=== PATIENT | female | born 1960 | race Caucasian/White ===

== ENCOUNTER 2021-10-30 21:40 | Emergency (ER) | payer SELFPAY ==
[~2021-10-30] VITALS: Ht 137.2 cm; Wt 66.4 kg
[2021-10-30 22:09] VITALS: BP 142/79
--- NOTE | 2021-10-30 23:19 | NUR ---
PT TAKEN TO BED 4.
--- NOTE | 2021-10-30 23:38 | NUR ---
ER AT BEDSIDE
[2021-10-30] MEDS ORDERED: ACETAMINOPHEN EXTRA STRENGTH 500 MG TAB PO ONE (23:50)
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
[2021-10-31] MEDS ORDERED: LIDOCAINE MPF 1% 5 ML ONE (00:14)
[2021-10-31] MEDS ORDERED: LIDOCAINE MPF 1% 10 MG/ML VIAL INJ ONE (00:15)
[2021-10-31] MEDS ORDERED: ACET-10509 PO (01:33)
[2021-10-31] MEDS ORDERED: BACI1PAC6 TP (01:33)
[2021-10-31 02:00] VITALS: BP 142/79
--- NOTE | 2021-10-31 02:01 | NUR ---
Patient discharged with v/s stable. Written and verbal after care instructions given and explained. Patient alert, oriented and verbalized understanding of instructions. Ambulatory with steady gait. All questions addressed prior to discharge. ID band removed. Patient advised to follow up with PMD. Rx of ACETAMINOPHEN AND BACITRACIN given. Patient educated on indication of medication including possible reaction and side effects. Opportunity to ask questions provided and answered. A/OX4, VS, AMBULATORY, UNLABORED BREATHING, AND CALM DEMEANOR.
== END 2021-10-31 02:00 | disposition home or self-care (01) ==
LOC: MED 21:40
DX: S61.211A Laceration without foreign body of left index finger without damage to nail, initial encounter (principal); Z90.49 Acquired absence of other specified parts of digestive tract; Z79.899 Other long term (current) drug therapy; Z79.2 Long term (current) use of antibiotics; W26.0XXA Contact with knife, initial encounter; Y93.89 Activity, other specified; Y92.000 Kitchen of unspecified non-institutional (private) residence as the place of occurrence of the external cause; Y99.8 Other external cause status
CPT/HCPCS: 12002; 90471; 90715; 99283; J2001

== ENCOUNTER 2021-11-08 08:06 | Emergency (ER) | payer SELFPAY ==
[~2021-11-08] VITALS: Ht 153.7 cm; Wt 65.9 kg
[~2021-11-08 08:06] MED LIST: ACET-10509 PO; BACI1PAC6 TP
[2021-11-08 08:11] VITALS: BP 115/64
[2021-11-08 09:23] VITALS: BP 115/64
== END 2021-11-08 09:24 | disposition home or self-care (01) ==
LOC: MED 08:06
DX: S61.211D Laceration without foreign body of left index finger without damage to nail, subsequent encounter (principal); Z79.899 Other long term (current) drug therapy; Z79.2 Long term (current) use of antibiotics; X58.XXXD Exposure to other specified factors, subsequent encounter
CPT/HCPCS: 99283

== ENCOUNTER 2021-11-13 12:48 | Emergency (ER) | payer SELFPAY ==
[~2021-11-13] VITALS: Ht 154.9 cm; Wt 66.2 kg
[2021-11-13 13:10] VITALS: BP 129/79
--- NOTE | 2021-11-13 13:49 | NUR ---
PT SEEN AND TREATED BY GLO AMBROCIO, NO NURSING INTERVENTIONS PROVIDED
--- NOTE | 2021-11-13 13:50 | NUR ---
Patient discharged with v/s stable. Written and verbal after care instructions ABOUT SUTURE REMOVAL, CARE AFTER given and explained. Patient verbalized understanding. Ambulatory with steady gait. All questions addressed prior to discharge. Advised to follow up with PMD.
== END 2021-11-13 13:50 | disposition home or self-care (01) ==
LOC: MED 12:48
DX: S61.211D Laceration without foreign body of left index finger without damage to nail, subsequent encounter (principal); Z79.899 Other long term (current) drug therapy; X58.XXXD Exposure to other specified factors, subsequent encounter
CPT/HCPCS: 99281